=== PATIENT | male | born 1980 | race Two or more races ===

== ENCOUNTER 2020-02-23 06:11 | Inpatient (IN) | payer OTHER ==
[2020-02-20 16:57] LABS: BASOPHILS # (AUTO) 0.1 (0.0-0.1); BASOPHILS % 1.4 % (0.0-1.0); EOSINOPHILS % 1.1 % (0.0-6.0); HEMATOCRIT 37.4 % (38.2-49.6); HEMOGLOBIN 10.8 g/dL (14.0-18.0); LYMPHOCYTES # (AUTO) 1.1 (1.0-3.2); LYMPHOCYTES % 30.3 % (18.0-39.1); MEAN CORPUSCULAR HGB CONC 28.9 g/dL (31-35); MEAN CORPUSCULAR VOLUME 69.3 fL (81-99); MONOCYTES # (AUTO) 0.4 (0.2-0.8); MONOCYTES % 10.5 % (4.4-11.3); NEUTROPHILS # (AUTO) 2.1 (2.1-6.9); NEUTROPHILS % 56.4 % (38.7-80.0); PLATELET COUNT 295 x10e3/uL (140-360); RED CELL DISTRIBUTION WIDTH 16.6 % (11.7-14.4)
[2020-02-20 17:08] LABS: ANION GAP 14.4 mmol/L (8-16); BLOOD UREA NITROGEN 14 mg/dL (7-26); BUN/CREATININE RATIO 14 (6-25); CALCIUM 9.2 mg/dL (8.4-10.2); CARBON DIOXIDE 27 mmol/L (22-29); CHLORIDE 102 mmol/L (98-107); CREATININE, SERUM 1.02 mg/dL (0.72-1.25); EST GLOMERULAR FILTRATION RATE > 60 ML/MIN (60-); GLUCOSE 88 mg/dL (74-118); POTASSIUM 4.4 mmol/L (3.5-5.1); SODIUM 139 mmol/L (136-145)
[~2020-02-23] VITALS: Ht 180.3 cm; Wt 68.9 kg
[2020-02-23] MEDS ORDERED: BUPIVACAINE 0.25% 30ML SDV ONE (08:07)
[2020-02-23] MEDS ORDERED: LIDOCAINE HCL 2% 30 ML TUBE ONE (08:07)
[2020-02-23] MEDS ORDERED: LIDOCAINE 1% W/EPINEPHRINE 20 ML VIAL ONE (08:07)
[2020-02-23] MEDS ORDERED: BUPIVACAINE LIPOSOME/PF 266 MG/20 ML IJ ONE (08:08)
[2020-02-23] MEDS ORDERED: ONDANSETRON HCL INJ 2MG/ML 2ML 2 MG/ML VIAL IV PRN (12:00)
[2020-02-23] MEDS ORDERED: ACETAMINOPHEN 1000 MG/100 ML IV PRN (12:00)
[2020-02-23] MEDS ORDERED: NALOXONE HCL INJ 0.4 MG/ML AMP IV PRN (12:00)
[2020-02-23] MEDS: HYDROMORPHONE 0.2MG/ML-SOD CHL 30ML PCA SYRINGE IV PRN ×2 (12:34→22:40)
[2020-02-23] MEDS ORDERED: MIDAZOLAM HCL 2 MG/2 ML VIAL ONE (12:49)
[2020-02-23] MEDS ORDERED: FENTANYL CITRATE/PF 100MCG/2 ML INJ ONE (12:49)
[2020-02-23] MEDS: DEXTROSE 5%/LACTATED RINGERS 1,000 ML IV SCH ×2 (13:29→22:30)
[2020-02-23 13:30] VITALS: BP 118/79
[2020-02-23] MEDS: CEFOXITIN 1GM/0.9% NS 50ML 50 ML IV SCH ×2 (14:00→17:53)
[2020-02-23] MEDS: PANTOPRAZOLE 40 MG 10ML VIAL IV SCH (14:00)
[2020-02-23] MEDS ORDERED: PROPOFOL IV EMULSION 10 MG/ML 20 ML VIAL ONE ×2 (15:34)
[2020-02-23] MEDS ORDERED: ONDANSETRON HCL INJ 2MG/ML 2ML 2 MG/ML VIAL ONE (15:34)
[2020-02-23] MEDS ORDERED: ETOMIDATE 2 MG/ML 10 ML INJ IV ONE (15:34)
[2020-02-23] MEDS ORDERED: CEFOXITIN SOD 1 GM VIAL ONE (15:34)
[2020-02-23] MEDS ORDERED: SEVOFLURANE INHAL SOLN 250 ML PEN BTL ONE (15:34)
[2020-02-23] MEDS ORDERED: DEXAMETHASONE SOD PHOS INJ 4 MG/ML VIAL ONE (15:34)
[2020-02-23 16:42] VITALS: BP 110/75
[2020-02-23] MEDS: DOCUSATE SODIUM 100 MG CAP PO SCH (17:05)
[2020-02-23 20:00] VITALS: BP 112/68
[2020-02-23 21:05] VITALS: BP 112/68
[2020-02-24] VITALS (8 sets, daily range): BP systolic 101–117; BP diastolic 56–65
[2020-02-24 06:03] LABS: BASOPHILS % 0.1 % (0.0-1.0); HEMATOCRIT 30.8 % (38.2-49.6); HEMOGLOBIN 9.1 g/dL (14.0-18.0); LYMPHOCYTES # (AUTO) 0.9 (1.0-3.2); LYMPHOCYTES % 10.2 % (18.0-39.1); MEAN CORPUSCULAR HEMOGLOBIN 20.2 pg (28-32); MEAN CORPUSCULAR HGB CONC 29.5 g/dL (31-35); MEAN CORPUSCULAR VOLUME 68.4 fL (81-99); MONOCYTES # (AUTO) 0.6 (0.2-0.8); MONOCYTES % 7.7 % (4.4-11.3); NEUTROPHILS # (AUTO) 6.8 (2.1-6.9); NEUTROPHILS % 81.6 % (38.7-80.0); PLATELET COUNT 261 x10e3/uL (140-360); RED CELL DISTRIBUTION WIDTH 16.6 % (11.7-14.4)
[2020-02-24 06:34] LABS: ANION GAP 12.1 mmol/L (8-16); BLOOD UREA NITROGEN 11 mg/dL (7-26); BUN/CREATININE RATIO 12 (6-25); CALCIUM 8.3 mg/dL (8.4-10.2); CARBON DIOXIDE 25 mmol/L (22-29); CHLORIDE 103 mmol/L (98-107); CREATININE, SERUM 0.93 mg/dL (0.72-1.25); EST GLOMERULAR FILTRATION RATE > 60 ML/MIN (60-); GLUCOSE 139 mg/dL (74-118); POTASSIUM 4.1 mmol/L (3.5-5.1); SODIUM 136 mmol/L (136-145)
[2020-02-24] MEDS: HYDROMORPHONE 0.2MG/ML-SOD CHL 30ML PCA SYRINGE IV PRN (06:55)
[2020-02-24] MEDS: DEXTROSE 5%/LACTATED RINGERS 1,000 ML IV SCH ×2 (08:35→20:07)
[2020-02-24] MEDS: DOCUSATE SODIUM 100 MG CAP PO SCH ×2 (08:36→17:21)
[2020-02-24] MEDS: PANTOPRAZOLE 40 MG 10ML VIAL IV SCH (12:07)
[2020-02-24] MEDS: HYDROCODONE/APAP 7.5MG-325MG 1 EA TAB PO PRN (18:35)
[2020-02-24] MEDS: HYDROMORPHONE 1MG/1ML INJ IV PRN (21:18)
[2020-02-24] MEDS: TRIAMCINOLONE 0.1% OINTMENT 15 GM TUBE TP SCH (22:10)
[2020-02-25] VITALS (7 sets, daily range): BP systolic 100–117; BP diastolic 55–78
[2020-02-25] MEDS: HYDROMORPHONE 1MG/1ML INJ IV PRN ×2 (01:10→05:30)
[2020-02-25] MEDS: HYDROCODONE/APAP 7.5MG-325MG 1 EA TAB PO PRN ×4 (09:30→22:35)
[2020-02-25] MEDS: DOCUSATE SODIUM 100 MG CAP PO SCH ×2 (09:30→17:00)
[2020-02-25] MEDS: TRIAMCINOLONE 0.1% OINTMENT 15 GM TUBE TP SCH ×3 (09:30→21:00)
[2020-02-25] MEDS: PANTOPRAZOLE 40 MG 10ML VIAL IV SCH (12:00)
[2020-02-25] MEDS: DEXTROSE 5%/LACTATED RINGERS 1,000 ML IV SCH (17:51)
[2020-02-25] MEDS ORDERED: MAGNESIUM HYDROXIDE 30 ML UDC PO ONE (19:30)
[2020-02-26 00:26] VITALS: BP 113/72
[2020-02-26 04:00] VITALS: BP 122/82
[2020-02-26] MEDS: HYDROCODONE/APAP 7.5MG-325MG 1 EA TAB PO PRN ×4 (04:40→19:14)
[2020-02-26 07:14] VITALS: BP 112/70
[2020-02-26 07:25] VITALS: BP 112/70
[2020-02-26] MEDS: DOCUSATE SODIUM 100 MG CAP PO SCH ×2 (08:36→16:45)
[2020-02-26 11:01] VITALS: BP 116/72
[2020-02-26] MEDS: PANTOPRAZOLE 40 MG 10ML VIAL IV SCH (12:40)
[2020-02-26] MEDS ORDERED: ONDANSETRON HCL 4 MG ORAL DISINTEGRATING TAB PO PRN (13:15)
[2020-02-26 14:54] VITALS: BP 108/61
[2020-02-26] MEDS: TRIAMCINOLONE 0.1% OINTMENT 15 GM TUBE TP SCH (16:45)
[2020-02-26] MEDS ORDERED: SURFAK240 MG PO (19:04)
[2020-02-26] MEDS ORDERED: NORCO 7.5-3251 EACH PO (19:05)
[2020-02-26] MEDS ORDERED: LEVOFLOXACIN250 MG PO (19:05)
== END 2020-02-26 20:00 | disposition home or self-care (01) | DRG 349 ==
LOC: OR 06:11 → EDSEX 10:00 → PACU V 11:50 → MED/SURG 12:52
PROVIDERS: ADMIT Surgery; ATTEND Surgery
PROC: 0DQQ8ZZ Repair Anus, Via Natural or Artificial Opening Endoscopic (ICD-10-PCS; 2020-02-23)
PROC: 06BY3ZC Excision of Hemorrhoidal Plexus, Percutaneous Approach (ICD-10-PCS; principal; 2020-02-23 10:05)
DX: K64.5 Perianal venous thrombosis (principal); K62.2 Anal prolapse; Z20.828 Contact with and (suspected) exposure to other viral communicable diseases
CPT/HCPCS: 36415; 80048; 85025; 88304; J0694; J1100; J1170; J2250; J2405; J3010; U0002